=== PATIENT | male | born 1965 | race Caucasian/White ===

== ENCOUNTER 2020-02-15 09:46 | Day surgery (SDC) | payer OTHER ==
[~2020-02-15] VITALS: Ht 175.3 cm; Wt 79.4 kg
[2020-02-15 12:11] VITALS: BP 131/78; Ht 175.3 cm; Wt 79.4 kg
--- NOTE | 2020-02-16 07:24 | OP ---
PATIENT NAME: Yannick MORRIS MEDICAL RECORD: [id number] :67 LOCATION:[facility] ADMISSION DATE: SURGEON: LOS SANTOYO DO DATE OF OPERATION: 02/15/2020 PROCEDURE PERFORMED: Right middle finger trigger release or A1 parish release. PREOPERATIVE DIAGNOSIS: Right middle finger trigger finger. POSTOPERATIVE DIAGNOSIS: Right middle finger trigger finger. INDICATIONS: Mr. Morris is a 54-year-old male who has had this catching and locking of his right middle finger. He started dealing with them, wanted something done surgically. I informed him we could do a trigger finger release by releasing the A1 parish. He was okay with that. He was aware of the risks including damage to nerves in the area, infection, bleeding, dehiscence of the wound, continued pain, and he signed the consent. SURGEON: Los Santoyo DO DESCRIPTION OF PROCEDURE: The patient was taken to the operative suite, laid in supine position, given general anesthetic and a gram of Ancef preoperatively. The right upper extremity was then prepped and draped in sterile fashion. He had been sedated and LMA was placed. Right upper extremity had been then prepped and draped in sterile fashion. Time out was performed. Everyone was agreeance with correct side, site, patient and procedure. I then made an incision over the palmar crease at the A1 parish site with a 15 blade scalpel and then bluntly dissected down with #2 Ragnell down to the A1 parish and using scissors and loupe magnification released A1 parish and pulled the tendon out through the incision to ensure that would not catch or lock and it also arranged his middle finger. The tourniquet was then let down as it was inflated prior to starting at 250 mmHg after exsanguinating the right upper extremity. It was up for 5 minutes. The site was then injected with 0.25% Marcaine with 10 mL of it around the site and then closed by Himanshu Bergeron, certified surgical assistant store manager sales, with 4-0 nylon in a horizontal mattress fashion. He was then awakened and taken to recovery and dressed with Adaptic, 4 x 4s, Kerlix and Coban, awakened and taken to recovery in stable condition. BLOOD LOSS: Minimal. COMPLICATIONS: None. TRANSINT:[id number] Voice Confirmation ID: [id number] DOCUMENT ID: [id number] MAY DO at 0724 CC: [id number] DICTATION DATE: 02/15/20 1551 COMPUTER SCIENCE PROFESSOR: 02/16/20 0139 [facility] 02/15/20 [id number] [place] [address]
== END 2020-02-15 16:13 | disposition home or self-care (01) ==
LOC: D.OPS 09:46
PROVIDERS: ATTEND Orthopaedic Surgery
DX: M65.331 Trigger finger, right middle finger (principal)